=== PATIENT | female | born 1955 | race Asian ===

== ENCOUNTER 2017-06-18 20:04 | Emergency (ER) | payer MEDICAID ==
[~2017-06-18] VITALS: Ht 152.4 cm; Wt 47.6 kg
[2017-06-18 20:09] VITALS: BP 169/80
--- NOTE | 2017-06-18 20:18 | NUR ---
SENT TO LOBBY IN STABLE CONDITION, WAITING FOR A BED, SIVA MADE AWARE.
--- NOTE | 2017-06-18 22:22 | NUR ---
PT AMB TO ER BED 10
--- NOTE | 2017-06-18 22:24 | NUR ---
PATIENT PRESENTS TO ED WITH S/P CAT SCRATCH AT 1500HOUR, ON HER RT INDEX FINGER. CAT WAS ASTRAY .TETANUS VACCINE UNKNOWN. PT DENIES N/V/D; SKIN IS PINK/WARM/DRY; AAOX4 WITH EVEN AND STEADY GAIT; LUNGS CLEAR BL; HR EVEN AND REGULAR; PT DENIES ANY FEVER, CP, SOB, OR COUGH AT THIS TIME; PATIENT STATES PAIN OF 0/10 AT THIS TIME; VSS; PATIENT POSITIONED FOR COMFORT; HOB ELEVATED; BEDRAILS UP X2; BED DOWN. ER MD MADE AWARE OF PT STATUS.
[2017-06-18 23:11] VITALS: BP 140/86
--- NOTE | 2017-06-18 23:11 | NUR ---
Patient discharged with v/s stable. Written and verbal after care instructions given and explained. Patient alert, oriented and verbalized understanding of instructions. Ambulatory with steady gait. All questions addressed prior to discharge. ID band removed. Patient advised to follow up with PMD. Rx of AUGMENTIN 875MG given. Patient educated on indication of medication including possible reaction and side effects. Opportunity to ask questions provided and answered.
== END 2017-06-18 23:11 | disposition home or self-care (01) ==
LOC: MED 20:04
DX: S61.250A Open bite of right index finger without damage to nail, initial encounter (principal); W55.01XA Bitten by cat, initial encounter; Y93.89 Activity, other specified; Y92.89 Other specified places as the place of occurrence of the external cause; Y99.8 Other external cause status
CPT/HCPCS: 90471; 90715; 99283

== ENCOUNTER 2018-09-07 21:39 | Emergency (ER) | payer OTHER, MEDICAID ==
[~2018-09-07] VITALS: Ht 152.4 cm; Wt 49.0 kg
[2018-09-07 22:30] VITALS: BP 148/86
--- NOTE | 2018-09-07 22:33 | NUR ---
PT AMBULATED TO LOBBY WITH VSS. ACCOMPANIED BY DAUGHTER.
--- NOTE | 2018-09-07 23:37 | NUR ---
PT AMBULATED TO BED 2
--- NOTE | 2018-09-07 23:56 | NUR ---
PT PRESENTS TO ED WITH C/O COUGH X3 WKS. PT STATED WAS SEEN BY PMD 1 WK AGO WITH TREATMENT, SYMPTOMS NOT RELIEVED. AAO X4, GCS 15, ABLE TO SPEKA WITH FULL COMPLETE SENTENCES. RESPIATIONS EVEN AND UNLABORED, BL LUNG CLEAR. C/O NON PRODUCTIVE COUGH. SKIN WARM/PINK/DRY, +PMSC. ABDOMEN SOFT, NON DISTENDED, ACTIVE BOWEL SOUND X4. VSS, STATED CP 5/10. DR. HILL MADE AWARE OF PT STATUS. WILL CONTINUE TO MONITOR
[2018-09-08] MEDS ORDERED: ALBUTEROL SULFATE/IPRATROPIU 3 ML SOL IH ONE (00:25)
--- NOTE | 2018-09-08 01:25 | NUR ---
Patient discharged with v/s stable. Written and verbal after care instructions given and explained. Patient alert, oriented and verbalized understanding of instructions. Ambulatory with steady gait. All questions addressed prior to discharge. ID band removed. Patient advised to follow up with PMD. Rx of ALBUTETROL, PREDNISONE 50 MG given. Patient educated on indication of medication including possible reaction and side effects. Opportunity to ask questions provided and answered.
[2018-09-08 01:26] VITALS: BP 141/67
== END 2018-09-08 01:25 | disposition home or self-care (01) ==
LOC: MED 21:39
DX: J45.909 Unspecified asthma, uncomplicated (principal)
CPT/HCPCS: 71045; 99283; J7620; Q0092

== ENCOUNTER 2020-03-20 02:09 | Emergency (ER) | payer BC, MEDICAID ==
[~2020-03-20] VITALS: Ht 157.5 cm; Wt 49.4 kg
[2020-03-20 02:14] VITALS: BP 147/76
[2020-03-20] MEDS ORDERED: ASPIRIN 325 MG TAB PO ONE (02:20)
[2020-03-20 02:36] LABS: BASOPHILS % (AUTO) 0.5 % (0.0-2.0); EOSINOPHILS # (AUTO) 0.1 K/uL (0-0.4); EOSINOPHILS % (AUTO) 1.6 % (0.0-4.0); HEMATOCRIT 37.6 % (36-48); HEMOGLOBIN 12.5 g/dL (12.0-16.0); LYMPHOCYTES % (AUTO) 53.2 % (20.5-51.1); MEAN CORPUSCULAR HEMOGLOBIN 32 pg (27-31); MEAN CORPUSCULAR HGB CONC 33 g/dL (33-37); MEAN CORPUSCULAR VOLUME 95.5 fL (80-94); MONOCYTES # (AUTO) 0.5 K/uL (0.8-1.0); MONOCYTES % (AUTO) 6.1 % (1.7-9.3); NEUTROPHILS # (AUTO) 2.9 K/uL (1.8-7.7); NEUTROPHILS % (AUTO) 38.6 % (42.2-75.2); PLATELET COUNT (AUTO) 289 K/uL (140-450); RED BLOOD CELL COUNT(AUTO) 3.94 MIL/uL (4.20-5.40); RED CELL DISTRIBUTION WIDTH 13.7 % (11.6-13.7); WHITE BLOOD COUNT (AUTO) 7.6 K/uL (4.8-10.8)
[2020-03-20 02:48] LABS: ALBUMIN 3.9 g/dL (3.4-5.0); ANION GAP 12.2 (8-16); CARBON DIOXIDE 29.1 mmol/L (21-32); CREATININE 0.7 mg/dL (0.6-1.3); POTASSIUM 3.3 mmol/L (3.5-5.1); TOTAL BILIRUBIN 0.3 mg/dL (0.0-1.0)
[2020-03-20] MEDS ORDERED: NITROGLYCERIN 0.4 MG TAB SL PRN (02:50)
[2020-03-20] MEDS ORDERED: NITROGLYCERIN 0.4 MG TAB SL ONE (02:50)
[2020-03-20] MEDS ORDERED: MORPHINE SULFATE 4 MG/ML SYR ONE (03:20)
[2020-03-20] MEDS ORDERED: ONDANSETRON 4 MG/2 ML VIAL ONE (03:21)
[2020-03-20] MEDS ORDERED: ONDANSETRON 4 MG/2 ML VIAL IVP ONE (03:40)
[2020-03-20] MEDS ORDERED: MORPHINE SULFATE 4 MG/ML SYR IVP ONE (03:40)
[2020-03-20 06:33] VITALS: BP 156/79
== END 2020-03-20 06:34 | disposition short-term general hospital (02) ==
LOC: MED 02:09
DX: I21.4 Non-ST elevation (NSTEMI) myocardial infarction (principal); I10 Essential (primary) hypertension
CPT/HCPCS: 36415; 71045; 80053; 84484; 85025; 87426; 93005; 96374; 96375; 99291; 99292; J2270; J2405; Q0092; 99285

== ENCOUNTER 2021-08-21 23:48 | Emergency (ER) | payer BC, MEDICAID ==
[~2021-08-21] VITALS: Ht 152.4 cm; Wt 49.0 kg
[2021-08-22 00:08] VITALS: BP 137/66
--- NOTE | 2021-08-22 00:21 | NUR ---
66 YO F BIB DAUGHTER WITH C/C 10/10 RUQ PAIN X2HRS. +N/V. DENIES BLOOD IN EMESIS. DENIES FEVER, DIARRHEA, CHEST PAIN AND SOB. HX:STENT DENIES RX AND ALLERGIES
--- NOTE | 2021-08-22 00:25 | NUR ---
SIVA FORREST AT BEDSIDE.
--- NOTE | 2021-08-22 00:30 | NUR ---
PT TAKEN TO BED 12
[2021-08-22 01:11] LABS: BASOPHILS % (AUTO) 0.2 % (0.0-2.0); EOSINOPHILS # (AUTO) 0.1 K/uL (0-0.4); EOSINOPHILS % (AUTO) 1.2 % (0.0-4.0); HEMATOCRIT 34.7 % (36-48); HEMOGLOBIN 11.7 g/dL (12.0-16.0); LYMPHOCYTES # (AUTO) 1.3 K/uL (2.5-16.5); LYMPHOCYTES % (AUTO) 13.1 % (20.5-51.1); MEAN CORPUSCULAR HEMOGLOBIN 32 pg (27-31); MEAN CORPUSCULAR HGB CONC 34 g/dL (33-37); MEAN CORPUSCULAR VOLUME 95.2 fL (80-94); MONOCYTES # (AUTO) 0.5 K/uL (0.8-1.0); MONOCYTES % (AUTO) 4.8 % (1.7-9.3); NEUTROPHILS # (AUTO) 7.7 K/uL (1.8-7.7); NEUTROPHILS % (AUTO) 80.7 % (42.2-75.2); PLATELET COUNT (AUTO) 258 K/uL (140-450); RED BLOOD CELL COUNT(AUTO) 3.64 MIL/uL (4.20-5.40); RED CELL DISTRIBUTION WIDTH 14.8 % (11.6-13.7); WHITE BLOOD COUNT (AUTO) 9.5 K/uL (4.8-10.8)
--- NOTE | 2021-08-22 01:16 | NUR ---
Ultrasound at bedside.
[2021-08-22 01:20] LABS: APPEARANCE,URINE CLOUDY (CLEAR); BILIRUBIN,URINE NEGATIVE (NEGATIVE); BLOOD, URINE 3+ (NEGATIVE); COLOR,URINE YELLOW (YELLOW); LEUKOCYTE ESTERASE ,URINE NEGATIVE (NEGATIVE); NITRITE, URINE NEGATIVE (NEGATIVE); PH,URINE 7.5 (5.0-9.0); UGLUCOSE NEGATIVE (NEGATIVE)
--- NOTE | 2021-08-22 01:23 | NUR ---
PT REFUSED MEDICATION, STATED SHE DOES NOT FEEL PAIN OR NAUSEA AT THIS TIME. SIVA FORREST MADE AWARE.
[2021-08-22] MEDS: KETOROLAC 15 MG/ML VIAL IVP ONE (01:24)
[2021-08-22] MEDS: NACL 0.9% 1,000 ML IV ONE (01:24)
[2021-08-22] MEDS: ONDANSETRON 4 MG/2 ML VIAL IVP ONE (01:25)
[2021-08-22 01:28] LABS: ALBUMIN 3.8 g/dL (3.4-5.0); ANION GAP 11.3 (8-16); CARBON DIOXIDE 28.2 mmol/L (21-32); CREATININE 0.6 mg/dL (0.6-1.3); POTASSIUM 3.5 mmol/L (3.5-5.1); TOTAL BILIRUBIN 0.6 mg/dL (0.0-1.0)
--- NOTE | 2021-08-22 01:50 | NUR ---
iv infiltrated, discontinued. praveen wilson made aware, stated it's ok. warm compresses applied to site and elevated.
--- NOTE | 2021-08-22 02:07 | NUR ---
pt taken to rad.
--- NOTE | 2021-08-22 02:16 | NUR ---
pt back from rad.
--- NOTE | 2021-08-22 02:23 | NUR ---
pt back from xray. side rails up and family at bedside. v/s and pain scale done. pt laying in bed with no complaints at this time
--- NOTE | 2021-08-22 04:38 | NUR ---
pt is lying back in bed, daughter at bedside. pt in stable condition. vss. all needs met at this time. bed locked in lowest position, side rails x1.
--- NOTE | 2021-08-22 05:26 | NUR ---
PT APPEARS TO BE RESTING. EYES ARE CLOSED, OPENS EYES TO SOUND. EQUAL RISE AND FALL OF CHEST WALL. VSS. PT IS IN STABLE CONDITION. BED LOCKED IN LOWEST POSITION, SIDE RAILS X2 FOR SAFETY.
[2021-08-22] MEDS ORDERED: ACET-10509 PO (05:52)
[2021-08-22] MEDS ORDERED: ONDA-188 SL (05:52)
[2021-08-22 06:07] VITALS: BP 127/57
--- NOTE | 2021-08-22 06:07 | NUR ---
Patient discharged with v/s stable. Written and verbal after care instructions given and explained. Patient alert, oriented and verbalized understanding of instructions. Ambulatory with steady gait. All questions addressed prior to discharge. ID band removed. Patient advised to follow up with PMD. Rx of TYLENOL AND ZOFRAN given. Patient educated on indication of medication including possible reaction and side effects. Opportunity to ask questions provided and answered.
== END 2021-08-22 06:07 | disposition home or self-care (01) ==
LOC: MED 23:48
DX: K80.20 Calculus of gallbladder without cholecystitis without obstruction (principal); R11.2 Nausea with vomiting, unspecified; I10 Essential (primary) hypertension; Z79.899 Other long term (current) drug therapy; Z98.890 Other specified postprocedural states
CPT/HCPCS: 36415; 74176; 76705; 80053; 81001; 83690; 85025; 87086; 99285; J2405; Q0092; J1885

== ENCOUNTER 2022-03-22 22:00 | Emergency (ER) | payer OTHER, MEDICAID ==
[~2022-03-22] VITALS: Ht 172.7 cm; Wt 48.5 kg
[2022-03-22 22:00] VITALS: BP 132/67
[~2022-03-22 22:00] MED LIST: ACET-10509 PO; ONDA-188 SL
--- NOTE | 2022-03-22 22:05 | NUR ---
PT OFFLOADED TO TRIAGE ROOM
[2022-03-23 00:22] LABS: BASOPHILS % (AUTO) 0.1 % (0.0-2.0); HEMOGLOBIN 12.5 g/dL (12.0-16.0); LYMPHOCYTES # (AUTO) 0.6 K/uL (2.5-16.5); LYMPHOCYTES % (AUTO) 4.2 % (20.5-51.1); MEAN CORPUSCULAR HEMOGLOBIN 31 pg (27-31); MEAN CORPUSCULAR HGB CONC 33 g/dL (33-37); MEAN CORPUSCULAR VOLUME 94.7 fL (80-94); MONOCYTES # (AUTO) 0.6 K/uL (0.8-1.0); MONOCYTES % (AUTO) 4.1 % (1.7-9.3); NEUTROPHILS # (AUTO) 13.5 K/uL (1.8-7.7); NEUTROPHILS % (AUTO) 91.6 % (42.2-75.2); PLATELET COUNT (AUTO) 268 K/uL (140-450); RED BLOOD CELL COUNT(AUTO) 4.01 MIL/uL (4.20-5.40); RED CELL DISTRIBUTION WIDTH 14.7 % (11.6-13.7); WHITE BLOOD COUNT (AUTO) 14.8 K/uL (4.8-10.8)
[2022-03-23 01:06] LABS: ANION GAP 17.8 (8-16); POTASSIUM 3.8 mmol/L (3.5-5.1); TOTAL BILIRUBIN 1.1 mg/dL (0.0-1.0)
--- NOTE | 2022-03-23 01:22 | NUR ---
RECEIVED IN BED 11 WITH C/O A/P. [employer] LEAD [id number]; PT SPEAKS MANDARIN. BIBA FROM HOME WITH C/C OF 10/10 GENERALIZED ABD PAIN XTHIS MORNING. REPORTS 1 EPISODE OF N/V TODAY, NO BLOOD. REPORTS SHE HAS EATEN ALL DAY. TOOK TYLENOL BEFORE CALLING AMBULANCE. PT GIVEN 4MG ZOFRAN ODT. HX:HYPERLIPIDEMIA, HTN RX:LOSARTAN, METOPROLOL, PLAVIX, AMLODIPINE, ATROVASTATIN
--- NOTE | 2022-03-23 01:22 | NUR ---
PT TO BED 11
[2022-03-23] MEDS ORDERED: PIPERACILLIN/TAZOBACTAM 3.375 GM in DEXTROSE 5% 50 ML IV ONE (05:10)
[2022-03-23] MEDS ORDERED: MORPHINE SULFATE 4 MG/ML SYR IVP ONE ×2 (05:10→06:15)
[2022-03-23] MEDS ORDERED: NACL 0.9% 500 ML IV ONE (05:10)
[2022-03-23] MEDS ORDERED: PIPERACILLIN/TAZOBACTAM 3.375 GM VIAL IV ONE (05:32)
--- NOTE | 2022-03-23 05:42 | NUR ---
US AT BEDSIDE
--- NOTE | 2022-03-23 06:16 | NUR ---
PT REPORTS 10/10 ABD PAIN, PT RECIEVED 2MG ABOUT 30MINS AGO. SIVA BOSS STATED THAT WAS OK. ORDERS CARRIED OUT.
[2022-03-23] MEDS ORDERED: ONDANSETRON 4 MG/2 ML VIAL ONE (06:20)
--- NOTE | 2022-03-23 06:28 | NUR ---
RECEIVED VERBAL ORDER TO GIVE ZOFRAN 4MG IVP FOR NAUSEA.
[2022-03-23] MEDS ORDERED: ONDANSETRON 4 MG/2 ML VIAL IVP ONE (06:30)
--- NOTE | 2022-03-23 07:44 | NUR ---
attempted to give report to nancy contreras Brandi @ [phone]. no answer and no voicemail function available. 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
[2022-03-23 07:45] VITALS: BP 130/78
--- NOTE | 2022-03-23 07:45 | NUR ---
pt calm and sleeping
--- NOTE | 2022-03-23 07:54 | NUR ---
gave report to Radha JOE at [facility] for room 308A. ETA transport is [id number]
--- NOTE | 2022-03-23 08:45 | NUR ---
[facility] AT BEDSIDE FOR TRANSPORT
== END 2022-03-23 08:50 | disposition short-term general hospital (02) ==
LOC: MED 22:00
DX: K81.9 Cholecystitis, unspecified (principal); I10 Essential (primary) hypertension; E78.5 Hyperlipidemia, unspecified; Z79.899 Other long term (current) drug therapy
CPT/HCPCS: 36415; 71045; 74176; 76705; 80053; 81002; 81025; 83690; 84484; 85025; 93005; 96365; 96368; 96375; 99285; J2270; J2405; J2543; Q0092

== ENCOUNTER 2022-11-24 19:15 | Emergency (ER) | payer BC, MEDICAID ==
[~2022-11-24] VITALS: Ht 160 cm; Wt 52.6 kg
[2022-11-24 19:36] VITALS: BP 113/65
[2022-11-24] MEDS ORDERED: ALBUTEROL SULFATE/IPRATROPIU 3 ML SOL IH ONE (22:20)
--- NOTE | 2022-11-24 22:25 | NUR ---
pt to chc, rt at chair side
[2022-11-25] MEDS ORDERED: PRED20TA5 PO (00:26)
[2022-11-25] MEDS ORDERED: AZIT250T4 PO (00:26)
[2022-11-25] MEDS ORDERED: ALBU0.0912 IH (00:26)
[2022-11-25 00:38] VITALS: BP 123/75
--- NOTE | 2022-11-25 00:38 | NUR ---
Patient discharged with v/s stable. Written and verbal after care instructions given and explained. Patient alert, oriented and verbalized understanding of instructions. Ambulatory with steady gait. All questions addressed prior to discharge. ID band removed. Patient advised to follow up with PMD. Rx of ALBUTEROL SULFATE, AZITHROMYCIN and PREDNISONE given. Patient educated on indication of medication including possible reaction and side effects. Opportunity to ask questions provided and answered.
== END 2022-11-25 00:38 | disposition home or self-care (01) ==
LOC: MED 19:15
DX: J40 Bronchitis, not specified as acute or chronic (principal); I10 Essential (primary) hypertension; Z20.822 Contact with and (suspected) exposure to COVID-19; Z79.899 Other long term (current) drug therapy
CPT/HCPCS: 71045; 87426; 87804; 94640; 99284; Q0092